=== PATIENT | male | born 1980 | race Hispanic/Latino ===

== ENCOUNTER 2018-08-15 01:40 | Emergency (ER) | payer MEDICAID ==
[~2018-08-15 01:40] MED LIST: AMLO5TAB9 PO; AMOX-429 PO; ARFO15VI3 IH; AUD IH; DIPH25 PO; ESOM40CA PO; LEVO500T89 PO; METF-446 PO; MONT10TA24 PO; PRED10B PO; ROFL500T PO; SERT100T12 PO; TIOT18CA3 IH; TRAM50TA4 PO
[2018-08-15] MEDS ORDERED: TETANUS/DIPHTHERIA TOXOID [ADULT] 0.5 ML VIAL IM ONE (03:05)
[2018-08-15] MEDS ORDERED: OCTYL 2-CYANOACRYLATE 1 EACH TP ONE (03:45)
== END 2018-08-15 04:24 | disposition home or self-care (01) ==
LOC: EDH 01:40
DX: S01.01XA Laceration without foreign body of scalp, initial encounter (principal); E11.9 Type 2 diabetes mellitus without complications; I10 Essential (primary) hypertension; E78.5 Hyperlipidemia, unspecified; F41.9 Anxiety disorder, unspecified; Z88.0 Allergy status to penicillin; Z79.4 Long term (current) use of insulin; W22.8XXA Striking against or struck by other objects, initial encounter; Y93.89 Activity, other specified; Y92.098 Other place in other non-institutional residence as the place of occurrence of the external cause; Y99.8 Other external cause status
CPT/HCPCS: 12001; 70450; 90471; 90714

== ENCOUNTER 2018-09-28 11:46 | Emergency (ER) | payer MEDICAID | END 2018-09-28 12:43 | disposition home or self-care (01) | LOC: EDH 11:46 | DX: L02.412 Cutaneous abscess of left axilla (principal); I10 Essential (primary) hypertension; E78.5 Hyperlipidemia, unspecified; E11.9 Type 2 diabetes mellitus without complications; F41.9 Anxiety disorder, unspecified; Z79.4 Long term (current) use of insulin; Z87.891 Personal history of nicotine dependence; Z88.0 Allergy status to penicillin | CPT/HCPCS: 10060 ==